=== PATIENT | female | born 1930 | race Caucasian/White ===

== ENCOUNTER 2017-07-07 22:46 | Emergency (ER) | payer MEDICARE, OTHER ==
--- NOTE | 2017-07-07 23:07 | EDM.PDOC ---
ED HPI GENERAL MEDICAL PROBLEM - General Chief Complaint: Laceration Stated Complaint: Head wound Time Seen by Provider: 07/07/17 22:51 Source of Information: Reports: Patient History Limitations: Reports: No Limitations - History of Present Illness INITIAL COMMENTS - FREE TEXT/NARRATIVE: Patient presents to ER less than an hour after falling backward in her home and hitting the back of her head on a table. She says she lost her balance but denies LOC, lightheadedness or vision changes. She also denies any neck pain or pain/injury anywhere else. She denies feeling lightheaded when standing up from sitting or lying. She is not on any blood thinners. - Related Data Allergies Allergy/AdvReac Type Severity Reaction Status Date / Time aspirin Allergy Syncope Verified 07/07/17 22:48 Penicillins Allergy Itching Verified 07/07/17 22:48 Home Meds: Home Meds Lisinopril [Lisinopril] 10 mg PO DAILY 05/29/16 [History] Metoprolol Tartrate [Metoprolol Tartrate] 50 mg PO DAILY 05/29/16 [History] predniSONE [Prednisone] 5 mg PO DAILY PRN 05/29/16 [History] Past Medical History HEENT History: Reports: Impaired Vision Cardiovascular History: Reports: Hypertension, Other (See Below) Other Cardiovascular History: hx of palpatations [employer]LYST History: Reports: Musculoskeletal History: Reports: Osteoarthritis - Infectious Disease History Infectious Disease History: Reports: Chicken Pox, Measles, Mumps - Past Surgical History HEENT Surgical History: Reports: Cataract Surgery Musculoskeletal Surgical History: Reports: Hip Replacement, Knee Replacement Social & Family History - Family History Family Medical History: Noncontributory - Tobacco Use Smoking Status *Q: Never Smoker - Recreational Drug Use Recreational Drug Use: No ED ROS GENERAL - Review of Systems Review Of Systems: See Below Constitutional: Denies: Fever, Chills, Weakness HEENT: Denies: Ear Discharge, Nosebleed, Vision Change Respiratory: Denies: Shortness of Breath Cardiovascular: Denies: Chest Pain, Lightheadedness, Syncope GI/Abdominal: Denies: Abdominal Pain, Vomiting : Reports: No Symptoms Musculoskeletal: Denies: Neck Pain, Shoulder Pain, Arm Pain, Back Pain, Hand Pain, Leg Pain Skin: Reports: Wound (occiput). Denies: Cyanosis, Jaundice, Mottled, Pallor, Diaphoresis Neurological: Denies: Confusion, Dizziness, Headache, Seizure, Syncope, Trouble Speaking, Difficulty Walking Psychiatric: Denies: Agitation, Anxiety, Confusion Hematologic/Lymphatic: Denies: Easy Bleeding ED EXAM, SKIN/RASH Exam: See Below Exam Limited By: No Limitations General Appearance: Alert, WD/WN, No Apparent Distress Eye Exam: Bilateral Eye: EOMI, Normal Inspection, PERRL Ears: Normal External Exam, Hearing Grossly Normal Nose: Normal Inspection, No Blood Throat/Mouth: Normal Inspection, Normal Lips, Normal Voice, No Airway Compromise Head: Normocephalic, Other (2 cm laceration at occiput) Neck: Normal Inspection, Supple, Non-Tender, Full Range of Motion. No: Tender Lateral, Tender Midline Respiratory/Chest: No Respiratory Distress, Lungs Clear, Normal Breath Sounds Cardiovascular: Regular Rate, Rhythm, No Edema, No Murmur Back Exam: Normal Inspection, Full Range of Motion. No: CVA Tenderness (L), CVA Tenderness (R), Paraspinal Tenderness, Vertebral Tenderness Extremities: Normal Inspection, Normal Range of Motion, Non-Tender, No Pedal Edema Neurological: Alert, Oriented, CN II-XII Intact, Normal Cognition, No Motor/ Sensory Deficits. No: Abnormal Gait Psychiatric: Normal Affect, Normal Mood Skin: Warm, Dry, Intact, Normal Color, No Rash Location, Skin: Head ED SKIN PROCEDURES - Laceration/Wound Repair Middle Posterior Occipital Head Lac/Wound length In cm: 2 Appearance: Subcutaneous, Linear, Clean Distal NVT: Neuro & Vascular Intact Anesthetic Type: Other (none) Skin Prep: Chlorhexidine (Hibiciens) Exploration/Debridement/Repair: Wound Explored, In a Bloodless Field Closed with: Kathy # of Sutures: 2 Tetanus Status Addressed: Yes Complications: No Course - Vital Signs Last Recorded V/S: Last Vital Signs Temp 97.1 F 07/07/17 22:50 Pulse 96 07/07/17 22:50 Resp 18 07/07/17 22:50 BP 179/83 H 07/07/17 22:50 Pulse Ox 97 07/07/17 22:50 - Orders/Labs/Meds Orders: Active Orders 24 hr Category Date Time Status Vaccines to be Administered [RC] PER UNIT ROUTINE Care 07/07/17 23:25 Ordered Meds: Medications Discontinued Medications Generic Name Dose Route Start Last Admin Trade Name Freq PRN Reason Stop Dose Admin Diphtheria/Tetanus/Acell Pertussis 0.5 ml 07/07/17 23:25 07/07/17 23:35 Adacel IM 07/07/17 23:26 0.5 ml .ONCE ONE Administration Neomycin/Polymyxin/Bacitracin Confirm 07/07/17 23:18 Triple Antibiotic Oint Administered 07/07/17 23:19 Dose 1 each .ROUTE .[facility] ONE - Re-Assessments/Exams Free Text/Narrative Re-Assessment/Exam: 07/07/17 23:26 Discussed findings, expectations and treatment plan with patient and her . He will be with her for the next 24 hours to help watch for any changes. She doesn't think she has had a tetanus vaccine in several years so we will update that tonight. Patient discharged in stable condition. Departure - Departure Time of Disposition: 23:27 Disposition: Home, Self-Care 01 Condition: Good Clinical Impression: Occipital scalp laceration Qualifiers: Encounter type: initial encounter Qualified Code(s): S01.01XA - Laceration without foreign body of scalp, initial encounter - Discharge Information Instructions: Laceration Care, Adult, [id number] Forms: ED Department Discharge Additional Instructions: 1. Keep your wound clean and dry. You may shower but no tub bathing until kathy are removed. 2. Watch for any vision changes, repeated vomiting, worsening headache or balance worsening. You should come back for recheck immediately if that occurs. 3. See your PCP in ten days for staple removal. 4. Recheck sooner if any sign of infection or fever. - My Orders Last 24 Hours: My Active Orders 07/07/17 23:25 Vaccines to be Administered [RC] PER UNIT ROUTINE - Assessment/Plan Last 24 Hours: My Active Orders 07/07/17 23:25 Vaccines to be Administered [RC] PER UNIT ROUTINE
[2017-07-07] MEDS ORDERED: Bacitracin/Neomycin/Polymyxin B Oint 0.9 GM U/D Packet ONE (23:18)
[2017-07-07] MEDS ORDERED: Bacitracin/Neomycin/Polymyxin B Oint 0.9 GM U/D Packet TOP ONE (23:19)
[2017-07-07] MEDS ORDERED: Diphtheria,Pertussis(Acell),Tetanus Vaccine 0.5 ML SDV IM ONE (23:25)
[2017-07-08 00:50] VITALS: BP 160/70
== END 2017-07-07 23:45 | disposition home or self-care (01) ==
LOC: KA.ED 22:46
DX: S01.01XA Laceration without foreign body of scalp, initial encounter (principal); W19.XXXA Unspecified fall, initial encounter; Y92.099 Unspecified place in other non-institutional residence as the place of occurrence of the external cause; Z23 Encounter for immunization
CPT/HCPCS: 12001; 90471; 90715; 99282; 99283